=== PATIENT | female | born 1960 | race Caucasian/White ===

== ENCOUNTER 2016-11-21 21:18 | Observation (INO) | payer MEDICARE ==
[~2016-11-21] VITALS: Ht 157.5 cm; Wt 84.0 kg
[2016-11-21 21:25] VITALS: BP 177/70; PULSE 95; RESP 30; TEMP 98.8; O2SAT 96
[2016-11-21] MEDS ORDERED: GLUCAGON 1 MG/ML VIAL IV PUSH ONE (21:45)
[2016-11-21] MEDS ORDERED: MORPHINE SULFATE 4 MG/ML INJ IV PUSH ONE ×2 (21:45→23:00)
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
[2016-11-21 22:24] LABS: AUTOMATED NEUTROPHIL # 3.5 TH/MM3 (1.8-7.7); BASOPHIL # 0.1 TH/MM3 (0-0.2); EOSINOPHIL # 0.2 TH/MM3 (0-0.4); EOSINOPHIL % 2.3 % (0.0-4.0); HEMATOCRIT 36.1 % (35.0-46.0); HEMO FLAGS DIFF FINAL; LYMPH % 36.5 % (9.0-44.0); LYMPHOCYTE # 2.6 TH/MM3 (1.0-4.8); MEAN CELL VOLUME 90.5 FL (80.0-100.0); MEAN CORPUSCULAR HEMOGLOBIN 31.3 PG (27.0-34.0); MEAN CORPUSCULAR HGB CONC 34.6 % (32.0-36.0); MONO % 10.2 % (0.0-8.0); PLATELET COUNT 277 TH/MM3 (150-450); RED BLOOD COUNT 3.99 MIL/MM3 (4.00-5.30); RED CELL DISTRIBUTION WIDTH 13.8 % (11.6-17.2)
[2016-11-21 22:42] LABS: ANION GAP 9 MEQ/L (5-15); AST (GOT) 19 U/L (15-37); BICARBONATE 27.5 MEQ/L (21.0-32.0); BLOOD UREA NITROGEN 11 MG/DL (7-18); CHLORIDE 105 MEQ/L (98-107); GLOMERULAR FILTRATION RATE 49 ML/MIN (>89); POTASSIUM 3.5 MEQ/L (3.5-5.1); SODIUM (NA) 141 MEQ/L (136-145)
[2016-11-21 22:47] LABS: ALKALINE PHOSPHATASE 83 U/L (45-117); ALT (GPT) 30 U/L (10-53); TOTAL BILIRUBIN ADULT 0.4 MG/DL (0.2-1.0)
--- NOTE | 2016-11-21 22:48 | RADRPT ---
EXAM DATE/TIME: 11/21/2016 22:18 [facility] COMPARISON: No previous studies available for comparison. INDICATIONS : Foreign body in esophagus. SOB. Eval for foreign body. RADIATION DOSE: 8.73 CTDIvol (mGy) MEDICAL HISTORY : None SURGICAL HISTORY : None. ENCOUNTER: Initial ACUITY: 1 day PAIN SCALE: 5/10 LOCATION: chest TECHNIQUE: Volumetric scanning of the chest was performed. Using automated exposure control and adjustment of t he mA and/or kV according to patient size, radiation dose was kept as low as reasonably achievable to obtain optimal diagnostic quality images. FINDINGS: LUNGS: There is no consolidation or pneumothorax. No concerning pulmonary nodule is visualized. No definite foreign body identified. PLEURAE: There is no pleural thickening or pleural effusion. MEDIASTINUM: The heart and great vessels demonstrate no acute abnormality. There is no mediastinal or hilar lymph adenopathy. AXILLAE: Within normal limits. No lymphadenopathy. MUSCULOSKELETAL: There is moderate to severe chronic compression deformity involving T10 with kyphosis. MISCELLANEOUS: The visualized upper abdominal organs demonstrate no acute abnormality. CONCLUSION: No definite foreign body identified. Moderate to severe chronic compression deformity involving T10 with kyphosis. Lungs are clear. Bairon Costello MD on November 21, 2016 at 22:43 Board Certified Radiologist. This report was verified electronically.
[2016-11-21 22:50] LABS: APTT (PATIENT) 32.6 SEC (24.3-30.1); PROTHROMBIN TIME - PATIENT 10.6 SEC (9.8-11.6)
--- NOTE | 2016-11-21 22:55 | RADRPT ---
EXAM DATE/TIME: 11/21/2016 22:36 [facility] COMPARISON: No previous studies available for comparison. INDICATIONS : Possible aspiration. Patient choked on a piece of chicken. MEDICAL HISTORY : None. SURGICAL HISTORY : None. ENCOUNTER: Initial ACUITY: 1 day PAIN SCORE: 10/10 LOCATION: Bilateral chest FINDINGS: There is moderate to severe compression deformity involving the T10 vertebral body. This is likely c hronic. The heart and mediastinal structures are normal. The pulmonary vascular pattern is normal. The lungs are clear. No radiopaque foreign body is noted. CONCLUSION: 1. No acute cardiopulmonary disease. 2. Moderate to severe compression deformity involving the T10 vertebral body which is likely chronic. Bairon Costello MD on November 21, 2016 at 22:51 Board Certified Radiologist. This report was verified electronically.
[2016-11-21] MEDS ORDERED: HYDROmorphone HCL PF 1 MG/ML VIAL IV PUSH ONE (23:30)
[2016-11-22] MEDS ORDERED: SODIUM CHLORIDE 0.9% FLUSH 10 ML FLUSH IV FLUSH PRN (00:15)
[2016-11-22] MEDS ORDERED: ACETAMINOPHEN 1000 MG/100 ML VIAL IV PRN (00:15)
[2016-11-22] MEDS ORDERED: MORPHINE SULFATE 4 MG/ML INJ IV PRN (00:15)
[2016-11-22] MEDS ORDERED: BISACODYL 10 MG SUPP PR PRN (00:15)
[2016-11-22] MEDS ORDERED: ONDANSETRON HCL 4 MG/2 ML VIAL IVP PRN (00:15)
[2016-11-22 00:27] VITALS: BP 112/60; PULSE 59; RESP 28; O2SAT 98
[2016-11-22] MEDS ORDERED: LORA-400 PO (00:29)
[2016-11-22] MEDS ORDERED: LYRI200C PO (00:33)
[2016-11-22] MEDS ORDERED: MULT-135 PO (00:33)
[2016-11-22] MEDS ORDERED: CLON0.5T PO (00:33)
[2016-11-22] MEDS ORDERED: BUPR100T4 PO (00:33)
[2016-11-22] MEDS ORDERED: CITA40TA4 PO (00:33)
[2016-11-22] MEDS ORDERED: TRAZ150T75 PO (00:33)
[2016-11-22] MEDS: MORPHINE SULFATE 4 MG/ML INJ IV PRN ×3 (01:27→17:24)
[2016-11-22 01:48] VITALS: BP 112/60; PULSE 60; RESP 18; O2SAT 95
[2016-11-22] MEDS: PANTOPRAZOLE SODIUM 40 MG VIAL IV PUSH SCH ×3 (01:57→20:28)
[2016-11-22] MEDS: SODIUM CHLOR 0.9% 1000 ML INJ 1,000 ML IV SCH ×3 (01:57→19:54)
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
[2016-11-22 05:35] VITALS: BP 129/92; PULSE 59; RESP 18; O2SAT 96
[2016-11-22 07:32] VITALS: BP 117/58; PULSE 52; RESP 18; O2SAT 95
[2016-11-22] MEDS ORDERED: PROPOFOL 200 MG/20 ML AMP IV ONE (08:20)
[2016-11-22] MEDS ORDERED: DO NOT ADM ANY ANTICOAGULANT DRUGS XX PRN (08:48)
[2016-11-22] MEDS ORDERED: *RESP: ALBUTEROL 2.5 MG/3 ML NEB (PRN) PERIprocedural Use ONLY NEB ONE (08:49)
--- NOTE | 2016-11-22 08:52 | PD.CONS ---
HPI History of Present Illness This is a 56 year old female who presents to the ED with complaints of food bolus impaction this happened earlier in the day and she did not respond to the gone injection the patient complains of discomfort and inability to swallow liquids with some epigastric discomfort and pain she denies any prior history of heartburn or reflux denies any prior history of dysphagia or odynophagia she denies any change in appetite or weight loss and overall apart from anxiety she is in good health PFSH Past Medical History Anxiety Past Surgical History Hysterectomy, Right Arm Surgery Coded Allergies: Codeine (Verified Allergy, Unknown, 11/21/16) Penicillin (Verified Allergy, Unknown, 11/21/16) Family History Noncontributory Social History No tobacco or alcohol Review of Systems ROS Review of systems Patient denies any headache dizziness blurry vision, denies any chest pain shortness of breath cough fever chills, Denies any palpitations or fatigue denies any polyuria dysuria hematuria, denies any numbness tingling or weakness, denies any skin rash pruritus or jaundice, denies any easy bruising or bleeding tendency, denies any recent change in mood GI Exam Vitals I&O Vital Signs Date Time Temp Pulse Resp B/P Pulse Ox O2 Delivery O2 Flow Rate FiO2 11/22/16 07:32 52 18 117/58 95 Nasal Cannula 2 11/22/16 05:35 59 18 129/92 96 Nasal Cannula 2 11/22/16 01:48 60 18 112/60 95 Room Air 11/22/16 00:27 59 28 112/60 98 Room Air 11/21/16 21:29 Nasal Cannula 2 11/21/16 21:29 30 95 Nasal Cannula 2 11/21/16 21:25 98.8 95 30 177/70 96 Imaging Last Impressions Chest X-Ray 11/21/16 0000 Signed Impressions: Service Date/Time: Monday, November 21, 2016 22:36 - CONCLUSION: 1. No acute cardiopulmonary disease. 2. Moderate to severe compression deformity involving the T10 vertebral body which is likely chronic. Bairon Costello MD Chest CT 11/21/16 0000 Signed Impressions: Service Date/Time: Monday, November 21, 2016 22:18 - CONCLUSION: No definite foreign body identified. Moderate to severe chronic compression deformity involving T10 with kyphosis. Lungs are clear. Bairon Costello MD Laboratory Test 11/21/16 22:00 White Blood Count 7.0 TH/MM3 Red Blood Count 3.99 MIL/MM3 Hemoglobin 12.5 GM/DL Hematocrit 36.1 % Mean Corpuscular Volume 90.5 FL Mean Corpuscular Hemoglobin 31.3 PG Mean Corpuscular Hemoglobin 34.6 % Concent Red Cell Distribution Width 13.8 % Platelet Count 277 TH/MM3 Mean Platelet Volume 8.9 FL Neutrophils (%) (Auto) 50.0 % Lymphocytes (%) (Auto) 36.5 % Monocytes (%) (Auto) 10.2 % Eosinophils (%) (Auto) 2.3 % Basophils (%) (Auto) 1.0 % Neutrophils # (Auto) 3.5 TH/MM3 Lymphocytes # (Auto) 2.6 TH/MM3 Monocytes # (Auto) 0.7 TH/MM3 Eosinophils # (Auto) 0.2 TH/MM3 Basophils # (Auto) 0.1 TH/MM3 CBC Comment DIFF FINAL Differential Comment Prothrombin Time 10.6 SEC Prothromb Time International 1.0 RATIO Ratio Activated Partial 32.6 SEC Thromboplast Time Sodium Level 141 MEQ/L Potassium Level 3.5 MEQ/L Chloride Level 105 MEQ/L Carbon Dioxide Level 27.5 MEQ/L Anion Gap 9 MEQ/L Blood Urea Nitrogen 11 MG/DL Creatinine 1.15 MG/DL Estimat Glomerular Filtration 49 ML/MIN Rate Random Glucose 112 MG/DL Calcium Level 9.0 MG/DL Total Bilirubin 0.4 MG/DL Aspartate Amino Transf 19 U/L (AST/SGOT) Alanine Aminotransferase 30 U/L (ALT/SGPT) Alkaline Phosphatase 83 U/L Troponin I LESS THAN 0.02 NG/ML Total Protein 7.4 GM/DL Albumin 3.8 GM/DL Physical Examination HEENT: Pupils round and reactive to light; normocephalic; atraumatic; no jaundice. Throat is clear. NECK: Neck is supple, no JVD, no lymphadenopathy. CHEST: Chest is clear to auscultation and percussion. CARDIAC: Regular rate and rhythm with no murmur gallop or rubs. ABDOMEN: Soft, nondistended, nontender; no hepatosplenomegaly; bowel sounds are present in all four quadrants. EXTREMITIES: No clubbing, cyanosis, or edema. SKIN: Normal; no rash; no jaundice. [employer]: No focal deficits; alert and oriented times three. Assessment and Plan Plan Food bolus impaction Anxiety Patient advised an EGD Further recommendations shall depend on findings Spike Vaughan MD Nov 22, 2016 08:52
--- NOTE | 2016-11-22 08:57 | GIPROC ---
[facility] [address] [facility]. [facility], [address] EGD PROCEDURE REPORT EXAM DATE: 11/22/2016 PATIENT NAME: Brenda Valdes MR #: [id number] BIRTHDATE: 1960 ATTENDING: Spike Vaughan MD ORDER #: [id number] HYDRAULIC PRESS OPERATOR: Brenda Pires and Jane March STATUS: inpatient INDICATIONS: The patient is a 56 yr old female here for an EGD due to Food bolus impaction PROCEDURE PERFORMED: EGD w/ dilation of esophagus via guidewire MEDICATIONS: Per Anesthesia and None. TOPICAL ANESTHETIC: CONSENT: The patient understands the risks and benefits of the procedure and understands that these risks include, but are not limited to: sedation, allergic reaction, infection, perforation and/or bleeding. Alternative means of evaluation and treatment include, among others: physical exam, x-rays, and/or surgical intervention. The patient elects to proceed with this endoscopic procedure. medical equipment was checked for proper function. Hand hygiene and appropriate measures for infection prevention was taken. After the risks, benefits and alternatives of the procedure were thoroughly explained, Informed consent was verified, confirmed and timeout was successfully executed by the treatment team. The patient was anesthetized with topical anesthesia and the Pentax [id number] endoscope was introduced through the mouth and advanced to the second portion of the duodenum. Retroflexed views revealed no abnormalities The gastroscope was then slowly withdrawn and removed. ESOPHAGUS: The mucosa of the esophagus appeared normal. Multiple biopsies were performed. A moderately severe Schatzki ring was found at the gastroesophageal junction. The stricture was dilated using a 17mm (51Fr) savary dilator over guidewire. Following this dilation, there was a small mucosal rent. The endoscopy was otherwise normal. STOMACH: A small hiatal hernia was noted. ADVERSE EVENTS: There were no complications. IMPRESSIONS: 1. The esophagus appeared normal; multiple biopsies were performed 2. Schatzki ring was found at the gastroesophageal junction; Following this dilation, there was a small mucosal rent 3. Normal endoscopy otherwise 4. Small hiatal hernia 5. Retroflexed views revealed no abnormalities RECOMMENDATIONS: 1. Await biopsy results. Biopsy results will not be ready for 7-10 days. If you don't hear from us in two weeks, call our office for biopsy results. 2. Follow-up: GI clinic 3 week(s) 3. Anti-reflux regimen PATIENT CONDITION: stable DISPOSITION: Home REPEAT EXAM: Spike Vaughan MD eSigned: Spike Vaughan MD 11/22/2016 8:57 AM cc: PATIENT NAME: Brenda Valdes MR#: [id number]
[2016-11-22] MEDS: SODIUM CHLORIDE 0.9% FLUSH 10 ML FLUSH IV FLUSH SCH ×2 (09:00→20:29)
--- NOTE | 2016-11-22 10:57 | RADRPT ---
EXAM DATE/TIME: 11/22/2016 10:18 [facility] COMPARISON: CHEST PA & LAT, November 21, 2016, 22:36. CT THORAX W/O CONTRAST, November 21, 2016, 22:18. INDICATIONS : Shortness of breath. MEDICAL HISTORY : None. SURGICAL HISTORY : Hysterectomy. ENCOUNTER: Subsequent ACUITY: 2 days PAIN SCORE: Non-responsive. LOCATION: Bilateral chest FINDINGS: Single AP view of the chest. Mild subsegmental atelectasis of the left lower lung. The lungs are othe rwise clear. Cardiomediastinal silhouette within normal limits. No evidence of pleural effusion or pn eumothorax. CONCLUSION: No acute cardiopulmonary disease identified. Garrett Kelly MD on November 22, 2016 at 10:54 Board Certified Radiologist. This report was verified electronically.
[2016-11-22] MEDS ORDERED: *morphine SULFATE 8 MG/ML PERIprocedure ONLY ONE ×3 (11:21→12:35)
[2016-11-22 11:25] LABS: BLOOD GAS BASE EXCESS -0.4 mmol/L (-2-2); BLOOD GAS CARBOXYHEMOGLOBIN 1.7 % (0-4); BLOOD GAS HCO3 25 mmol/L (22-26); BLOOD GAS METHEMOGLOBIN 1.3 % (0-2); BLOOD GAS O2 HGB SATURATION 93 % (90-100); BLOOD GAS PCO2 48 mmHg (38-42); BLOOD GAS PO2 82 mmHg (61-120); BLOOD GAS TOTAL HGB 11.5 G/DL (12.0-16.0); TEMP CORR TO 98.6
[2016-11-22 11:26] LABS: CRITICAL VALUE NO; DRAW SITE RT RADIAL; LITER FLOW 2 L/M; NUMBER OF ARTERIAL PUNCTURES 1; OXYGEN DEVICE NASAL CANNULA; STAT YES
[2016-11-22] MEDS: LORazepam 2 MG/ML VIAL IV PUSH PRN (12:25)
[2016-11-22 13:42] LABS: AUTOMATED NEUTROPHIL # 7.1 TH/MM3 (1.8-7.7); BASOPHIL % 0.5 % (0.0-2.0); EOSINOPHIL # 0.1 TH/MM3 (0-0.4); EOSINOPHIL % 0.6 % (0.0-4.0); HEMATOCRIT 35.2 % (35.0-46.0); HEMO FLAGS DIFF FINAL; LYMPH % 17.6 % (9.0-44.0); LYMPHOCYTE # 1.7 TH/MM3 (1.0-4.8); MEAN CELL VOLUME 92.1 FL (80.0-100.0); MEAN CORPUSCULAR HEMOGLOBIN 30.3 PG (27.0-34.0); MEAN CORPUSCULAR HGB CONC 32.8 % (32.0-36.0); MONO % 7.5 % (0.0-8.0); NEUT % 73.8 % (16.0-70.0); PLATELET COUNT 238 TH/MM3 (150-450); RED BLOOD COUNT 3.82 MIL/MM3 (4.00-5.30); RED CELL DISTRIBUTION WIDTH 13.5 % (11.6-17.2); WHITE BLOOD COUNT 9.7 TH/MM3 (4.0-11.0)
[2016-11-22] MEDS: RESP: ALBUTEROL 2.5 MG/IPRATROPIUM 0.5 MG NEB (SCH) NEB ×2 (14:00→20:03)
[2016-11-22 14:08] LABS: BICARBONATE 29.1 MEQ/L (21.0-32.0); POTASSIUM 3.8 MEQ/L (3.5-5.1)
[2016-11-22] MEDS: LEVOFLOXACIN 750 MG PREMIX INJ 150 ML IV SCH (14:30)
[2016-11-22 19:26] VITALS: BP 100/58; PULSE 59; RESP 20; TEMP 97.6; O2SAT 97
[2016-11-22 20:09] VITALS: O2SAT 95
--- NOTE | 2016-11-22 21:15 | MB ---
cc: Guero LUBIN M.D. DATE OF CONSULTATION 11/22/16 REASON FOR CONSULTATION Possible aspiration and hypoxia. HISTORY OF PRESENT ILLNESS A 56-hour-old white female with a history of anxiety WHO was transported to the emergency room with a piece of chicken lodged in her throat. The patient apparently was choking and tried to dislodge the piece of chicken but felt that part of it was lodged in the esophagus. The patient was also having some trouble breathing, but denied significant cough or hemoptysis. Upon arrival, a CT of the chest was done which showed no evidence of any lung infiltrate. The foreign body was not identified. She underwent upper endoscopy and esophageal dilatation earlier today. Now she is in her room on oxygen at 2 liters, seems lethargic but answers questions and her breathing is fairly comfortable. She has no cough at this time. No hemoptysis. No chest pains. PAST MEDICAL HISTORY 1. History of right arm surgery, 2. Hysterectomy, 3. History of anxiety. ALLERGIES PENICILLIN CODEINE. HABITS The patient smoked half to one-pack per day for about 20 years and then quit. No significant alcohol. FAMILY HISTORY Noncontributory REVIEW OF SYSTEMS The patient denies any weight loss. No chest pains. She has no shortness of breath or wheezing. She does have some abdominal and epigastric distress. No urinary symptoms. No leg or calf muscle pains. She has no joint pains or skin lesions. PHYSICAL EXAMINATION GENERAL: This is an averagely built middle-aged white female who is anxious, pale and in no acute distress. VITAL SIGNS: Blood pressure 110/70, pulse is 65, respirations 20, temperature 98.5. HEENT: Head normocephalic. Pupils are reactive. Throat is injected. Ears no inflammation. NECK: Supple. No bruits or thyroid enlargement. CHEST: Decreased breath sounds at the bases. Occasional wheezes bilaterally. HEART: The heart sounds are regular S1-S2. No murmur. ABDOMEN: Soft with mild epigastric tenderness. Bowel sounds are active. EXTREMITIES: No lesions or edema, no calf tenderness. NEUROLOGIC: Reflexes are 1+. No gross motor deficit. SKIN: No lesions observed. IMPRESSION 1. Esophageal foreign body, resolved 2. Hypertension 3. Anxiety disorder 4. Rule out aspiration. PLAN The patient will be placed on two liters of oxygen nasal cannula. She has already had esophageal dilation done. We will place her on nebulized albuterol solution t.i.d. p.r.n. and continue with the IV Levaquin as ordered for possible pneumonia. The patient will have a bedside pulmonary function study done as well and a repeat chest x-ray in a.m. Thank you, Dr. Nielson, for this consultation. MD MELANIE Maurice/ /7:36 PM /9:01 PM
--- NOTE | 2016-11-22 21:31 | EKG ---
Date Performed: 11/21/2016 Time Performed: 21:48:49 PTAGE: 56 years EKG: Sinus rhythm NORMAL ECG NO PREVIOUS TRACING DOCTOR: Katt Mcgowan Interpretating Date/Time 11/22/2016 21:30:21
--- NOTE | 2016-11-22 22:17 | EKG ---
Date Performed: 11/22/2016 Time Performed: 11:10:04 PTAGE: 56 years EKG: SINUS BRADYCARDIA Since previous tracing, no significant change noted BORDERLINE ECG PREVIOUS TRACING : 11/21/2016 21.48 DOCTOR: Katt Mcgowan Interpretating Date/Time 11/22/2016 22:15:57
[2016-11-23] VITALS (8 sets, daily range): BP systolic 122–166; BP diastolic 58–77; PULSE 56–89; RESP 18–20; TEMP 97.6–98.6; O2SAT 92–97
[2016-11-23] MEDS: SODIUM CHLOR 0.9% 1000 ML INJ 1,000 ML IV SCH ×3 (02:06→21:58)
[2016-11-23 04:33] LABS: AUTOMATED NEUTROPHIL # 4.9 TH/MM3 (1.8-7.7); BASOPHIL % 0.4 % (0.0-2.0); EOSINOPHIL % 0.6 % (0.0-4.0); HEMATOCRIT 33.3 % (35.0-46.0); HEMO FLAGS DIFF FINAL; LYMPH % 21.9 % (9.0-44.0); LYMPHOCYTE # 1.5 TH/MM3 (1.0-4.8); MEAN CELL VOLUME 91.4 FL (80.0-100.0); MEAN CORPUSCULAR HEMOGLOBIN 31.1 PG (27.0-34.0); MONO % 7.9 % (0.0-8.0); NEUT % 69.2 % (16.0-70.0); PLATELET COUNT 235 TH/MM3 (150-450); RED BLOOD COUNT 3.64 MIL/MM3 (4.00-5.30); RED CELL DISTRIBUTION WIDTH 13.7 % (11.6-17.2); WHITE BLOOD COUNT 7.1 TH/MM3 (4.0-11.0)
[2016-11-23 04:50] LABS: ANION GAP 8 MEQ/L (5-15); AST (GOT) 16 U/L (15-37); BICARBONATE 25.4 MEQ/L (21.0-32.0); BLOOD UREA NITROGEN 10 MG/DL (7-18); CHLORIDE 109 MEQ/L (98-107); GLOMERULAR FILTRATION RATE 71 ML/MIN (>89); POTASSIUM 3.9 MEQ/L (3.5-5.1); SODIUM (NA) 142 MEQ/L (136-145)
[2016-11-23 04:55] LABS: ALKALINE PHOSPHATASE 70 U/L (45-117); ALT (GPT) 25 U/L (10-53); TOTAL BILIRUBIN ADULT 0.3 MG/DL (0.2-1.0)
[2016-11-23] MEDS: RESP: ALBUTEROL 2.5 MG/IPRATROPIUM 0.5 MG NEB (SCH) NEB ×3 (07:26→21:10)
[2016-11-23] MEDS: PANTOPRAZOLE SODIUM 40 MG VIAL IV PUSH SCH ×2 (08:59→21:56)
[2016-11-23] MEDS: SODIUM CHLORIDE 0.9% FLUSH 10 ML FLUSH IV FLUSH SCH ×2 (09:00→21:00)
--- NOTE | 2016-11-23 10:26 | HHI.PR ---
Subjective Remarks Follow-up for dysphagia and shortness of breath. The patient complains of shortness of breath today. She is having pain with deep breathing. She's been having sweats overnight. She complains of a productive cough with green and black sputum. She denies any history of COPD. She denies any relief of the pain with morphine. She locates the pain midsternally and on the left side of the chest. She denies any personal past history or family history of clotting. Objective Vitals Vital Signs Date Time Temp Pulse Resp B/P Pulse Ox O2 Delivery O2 Flow Rate FiO2 11/23/16 07:24 98.2 62 18 166/77 92 11/23/16 03:56 97.6 60 20 145/66 97 11/23/16 00:16 98.6 56 20 128/58 95 11/22/16 20:09 95 Nasal Cannula 2.00 11/22/16 19:26 97.6 59 20 100/58 97 11/22/16 17:29 20 11/22/16 15:15 98.2 58 14 112/66 95 Nasal Cannula 3 11/22/16 14:00 56 14 99/58 94 Nasal Cannula 3 11/22/16 13:00 56 14 95/49 92 Nasal Cannula 3 11/22/16 12:00 60 14 114/71 96 Nasal Cannula 3 11/22/16 11:30 56 14 112/52 90 Nasal Cannula 3 11/22/16 11:15 55 14 95/66 93 Nasal Cannula 2 11/22/16 11:00 51 14 102/63 93 Nasal Cannula 2 11/22/16 10:45 56 14 109/64 93 Nasal Cannula 2 11/22/16 10:30 56 14 109/63 93 Nasal Cannula 2 I/O 11/22/16 11/22/16 11/22/16 11/23/16 11/23/16 11/23/16 07:00 15:00 23:00 07:00 15:00 23:00 Intake Total 600 ml 730 ml Output Total 0 ml Balance 600 ml 730 ml Intake Oral 0 ml IV Total 730 ml Other 600 ml Output Estimated Blood Loss 0 ml # Voids 1 2 Result Diagram: 11/23/16 0359 11/23/16 0359 Imaging Last Impressions Chest X-Ray 11/22/16 0000 Signed Impressions: Service Date/Time: Tuesday, November 22, 2016 10:18 - CONCLUSION: No acute cardiopulmonary disease identified. Garrett Kelly MD Chest CT 11/21/16 0000 Signed Impressions: Service Date/Time: Monday, November 21, 2016 22:18 - CONCLUSION: No definite foreign body identified. Moderate to severe chronic compression deformity involving T10 with kyphosis. Lungs are clear. Bairon Costello MD Objective Remarks GENERAL: Well-developed well-nourished. In [id number] distress with tachypnea. SKIN: Warm and dry. No lesions noted. HEENT: Normocephalic. Pupils equal and round. Mucous membranes pink and moist. CARDIOVASCULAR: Regular rate and rhythm. No murmur appreciated. RESPIRATORY: Clear to auscultation. Breath sounds equal bilaterally. GASTROINTESTINAL: Abdomen soft, non-tender, nondistended. Bowel sounds x4. MUSCULOSKELETAL: No clubbing or cyanosis. No edema. Left chest wall TTP. Left calf with no swelling, but tender to palpation. NEUROLOGICAL: Awake and alert. No focal neurological deficits. Moves upper and lower extremities spontaneously. Normal speech. PSYCHIATRIC: Appropriate mood and affect; insight and judgment normal. A/P Problem List: (1) Esophageal foreign body ICD Code: T18.108A Status: Resolved (2) Renal insufficiency ICD Code: N28.9 Status: Resolved (3) Anxiety ICD Code: F41.9 Status: Acute (4) HTN (hypertension) ICD Code: I10 Status: Acute (5) SOB (shortness of breath) ICD Code: R06.02 Status: Acute (6) Hypoxia ICD Code: R09.02 Status: Acute (7) Chest pain ICD Code: R07.9 Status: Acute Assessment and Plan 56-year-old female with a PMH of Anxiety who presented after choking on a piece of chicken Esophageal Foreign Body: after choking on boneless chicken, CXR w/ no acute findings, CT Chest w/ no obvious foreign body noted. Gastroenterology, Dr. Vaughan consulted, performed EGD which showed Schatzki ring which was dilated. Nothing by mouth with speech therapy eval. Atypical chest pain/shortness of breath/hypoxia: Concern for aspiration with dysphagia as above. Troponin negative 2. Chest x-rays and CT show no infiltrate. Check pulmonary angiogram to rule out PE and lower showing a Doppler to rule out DVT. Pulmonology consulted. Continue supplemental oxygen, nebulizers, IV Levaquin. Dehydration with mild CARA: Creatinine 1.15, no previous labs for comparison. Creatinine improved to 0.83 with IVF. Anxiety: Severe Anxiety, on multiple meds, unable to give PO at this time, continue Ativan IV as needed, resume home meds when able to take by mouth. Labile BP: Hypertensive on arrival and currently, but episodes of hypotension yesterday. Clonidine as needed. Monitor. DVT Prophylaxis: SCD/Teds. Written by Bigg Odom, acting as scribe for Dr. Nielson on 11/23/16 at 10:26. All or portions of this note were transcribed by scribe Bigg CORDOVA. I, Dr. Dottie Nielson personally performed the history, physical exam, and medical decision making; and confirmed the accuracy of the information in the transcribed note. Authenticated by Dr. Dottie Nielson on 11/23/16 at 10:26. Problem Qualifiers (1) Esophageal foreign body: Qualified Code: T18.108A - Esophageal foreign body, initial encounter Bigg Odom Nov 23, 2016 10:26 Dottie Nielson MD Nov 23, 2016 15:33
[2016-11-23] MEDS ORDERED: cloNIDine HCL 0.1 MG TAB PO PRN (10:30)
--- NOTE | 2016-11-23 10:50 | RADRPT ---
EXAM DATE/TIME: 11/23/2016 09:06 [facility] COMPARISON: No previous studies available for comparison. INDICATIONS : Pain in bilateral lower extremities. MEDICAL HISTORY : Pain in bilateral legs. SURGICAL HISTORY : Hysterectomy. Right arm surgery. ENCOUNTER: Initial ACUITY: 1 day PAIN SCORE: 5/10 LOCATION: Bilateral legs. TECHNIQUE: Venous ultrasound of the left and right leg was performed from the inguinal ligament to the proximal calf. Real-time, color Doppler and spectral tracing, compression and augmentation techniques were us ed. FINDINGS: RIGHT LEG: There is normal compressibility of the deep venous system from the inguinal region to the proximal ca lf. No echogenic clot is seen in the lumen of the common femoral, femoral, popliteal, and posterior tibial veins. There is a normal response of the venous system to proximal and distal augmentation an d respiration. LEFT LEG: There is normal compressibility of the deep venous system from the inguinal region to the proximal ca lf. No echogenic clot is seen in the lumen of the common femoral, femoral, popliteal, and posterior tibial veins. There is a normal response of the venous system to proximal and distal augmentation an d respiration. CONCLUSION: Negative for deep venous thrombosis. Andres Morse MD FACR on November 23, 2016 at 10:48 Board Certified Radiologist. This report was verified electronically.
[2016-11-23] MEDS: buPROPion HCL 100 MG TAB PO SCH (11:45)
[2016-11-23] MEDS: PREGABALIN 100 MG CAP PO SCH (11:47)
[2016-11-23] MEDS: CITALOPRAM HYDROBROMIDE 40 MG TAB PO SCH (11:47)
[2016-11-23] MEDS: LORazepam 2 MG/ML VIAL IV PUSH PRN ×2 (11:48→18:37)
[2016-11-23] MEDS: clonazePAM 0.5 MG TAB PO SCH (11:58)
[2016-11-23] MEDS ORDERED: IOHEXOL 350 MG/ML 10 ML VIAL (for RAD DIAG) IV ONE ×2 (12:03→14:54)
--- NOTE | 2016-11-23 12:55 | HHI.GIFU ---
Subjective Remarks Resting in bed. States her swallowing is much better today. ST was in and recommended a regular diet. She has worsening, shortness of breath, mildly labored breathing today. She just got back from CTA. (Radha Toure ) Objective Vitals I&O Vital Signs Date Time Temp Pulse Resp B/P Pulse Ox O2 Delivery O2 Flow Rate FiO2 11/23/16 11:55 98.1 78 20 154/74 96 11/23/16 07:24 98.2 62 18 166/77 92 11/23/16 03:56 97.6 60 20 145/66 97 11/23/16 00:16 98.6 56 20 128/58 95 11/22/16 20:09 95 Nasal Cannula 2.00 11/22/16 19:26 97.6 59 20 100/58 97 11/22/16 17:29 20 11/22/16 15:15 98.2 58 14 112/66 95 Nasal Cannula 3 11/22/16 14:00 56 14 99/58 94 Nasal Cannula 3 11/22/16 13:00 56 14 95/49 92 Nasal Cannula 3 I/O 11/22/16 11/22/16 11/22/16 11/23/16 11/23/16 11/23/16 07:00 15:00 23:00 07:00 15:00 23:00 Intake Total 600 ml 730 ml Output Total 0 ml Balance 600 ml 730 ml Intake Oral 0 ml IV Total 730 ml Other 600 ml Output Estimated Blood Loss 0 ml # Voids 1 2 Laboratory Laboratory Tests Test 11/22/16 11/23/16 13:20 03:59 White Blood Count 9.7 7.1 Red Blood Count 3.82 3.64 Hemoglobin 11.5 11.3 Hematocrit 35.2 33.3 Mean Corpuscular Volume 92.1 91.4 Mean Corpuscular Hemoglobin 30.3 31.1 Mean Corpuscular Hemoglobin 32.8 34.0 Concent Red Cell Distribution Width 13.5 13.7 Platelet Count 238 235 Mean Platelet Volume 8.4 9.0 Neutrophils (%) (Auto) 73.8 69.2 Lymphocytes (%) (Auto) 17.6 21.9 Monocytes (%) (Auto) 7.5 7.9 Eosinophils (%) (Auto) 0.6 0.6 Basophils (%) (Auto) 0.5 0.4 Neutrophils # (Auto) 7.1 4.9 Lymphocytes # (Auto) 1.7 1.5 Monocytes # (Auto) 0.7 0.6 Eosinophils # (Auto) 0.1 0.0 Basophils # (Auto) 0.0 0.0 CBC Comment DIFF FINAL DIFF FINAL Differential Comment Sodium Level 143 142 Potassium Level 3.8 3.9 Chloride Level 110 109 Carbon Dioxide Level 29.1 25.4 Anion Gap 4 8 Blood Urea Nitrogen 11 10 Creatinine 0.87 0.83 Estimat Glomerular Filtration 68 71 Rate Random Glucose 92 94 Calcium Level 8.2 8.7 Troponin I LESS THAN 0.02 Total Bilirubin 0.3 Aspartate Amino Transf 16 (AST/SGOT) Alanine Aminotransferase 25 (ALT/SGPT) Alkaline Phosphatase 70 Total Protein 6.7 Albumin 3.5 Date/Time Procedure Status Source Growth 11/22/16 13:25 Aerobic Blood Culture - Preliminary Resulted Blood Peripheral NO GROWTH IN 1 DAY 11/22/16 13:25 Anaerobic Blood Culture - Preliminary Resulted Blood Peripheral NO GROWTH IN 1 DAY Imaging Last Impressions Lower Extremity Ultrasound 11/23/16 0000 Signed Impressions: Service Date/Time: Wednesday, November 23, 2016 09:06 - CONCLUSION: Negative for deep venous thrombosis. Andres Morse MD FACR Chest X-Ray 11/22/16 0000 Signed Impressions: Service Date/Time: Tuesday, November 22, 2016 10:18 - CONCLUSION: No acute cardiopulmonary disease identified. Garrett Kelly MD Chest CT 11/21/16 0000 Signed Impressions: Service Date/Time: Monday, November 21, 2016 22:18 - CONCLUSION: No definite foreign body identified. Moderate to severe chronic compression deformity involving T10 with kyphosis. Lungs are clear. Bairon Costello MD Physical Exam HEENT: Normocephalic; atraumatic; no jaundice. CHEST: Resp. even, mildly labored, mildly tachypenic. O2 sat 96%. CARDIAC: RRR ABDOMEN: Soft, nondistended, mild lUQ/rib cage tenderness; no hepatosplenomegaly; bowel sounds are present in all four quadrants. EXTREMITIES: No clubbing, cyanosis, or edema. SKIN: Normal; no rash; no jaundice. PLEAT TAPER: No focal deficits; alert and oriented times three. (Toure,Radha Lala ANNUAL CAMPAIGN MANAGER) Assessment and Plan Plan ASSESSMENT: - Food bolus impaction. S/P EGD (11/23/16)-----> 1. The esophagus appeared normal; multiple biopsies were performed. 2. Schatzki ring was found at the gastroesophageal junction; Following this dilation, there was a small mucosal rent 3. Normal endoscopy otherwise 4. Small hiatal hernia 5. Retroflexed views revealed no abnormalities. Pathology pending. S/P ST evaluation---> pureed with thin liquids. PPI. - SOB, Difficulty breathing. CTA pending. Per primary - Anxiety, per primary PLAN: - Puree diet with thin liquids - Await pathology - PPI - Cont. ST - Supportive care - Further recommendations to follow based on results of above - Pt seen and examined by Dr. Vaughan and myself and this note is written on his behalf (Radha Toure) Physician Comments Patient seen and examined Agree with above Continue with current supportive care Monitor labs Not much to add from a GI perspective at this point in time we will sign off ( Spike Vaughan MD) Radha Toure Nov 23, 2016 12:54 Spike Vaughan MD Nov 23, 2016 14:29
--- NOTE | 2016-11-23 12:57 | RADRPT ---
EXAM DATE/TIME: 11/23/2016 12:03 [facility] COMPARISON: CT THORAX W/O CONTRAST, November 21, 2016, 22:18. INDICATIONS : Left sided chest pain, painful inspirations. IV CONTRAST: 75 cc Omnipaque 350 (iohexol) IV RADIATION DOSE: 22.39 CTDIvol (mGy) MEDICAL HISTORY : Hypertension. SURGICAL HISTORY : Hysterectomy. ENCOUNTER: Initial ACUITY: 1 day PAIN SCALE: 7/10 LOCATION: Left chest TECHNIQUE: Volumetric scanning of the chest was performed using a pulmonary embolism protocol MIP images were reconstructed. Using automated exposure control and adjustment of the mA and/or kV acco rding to patient size, radiation dose was kept as low as reasonably achievable to obtain optimal diag nostic quality images. FINDINGS: There is no evidence for pneumothorax. There is no evidence for central pulmonary emboli. There is no pericardial effusion. There is a well-circumscribed low density focal defect dome of the liver measuring 2.5 cm, probably s imple cyst. This was present on study of 11/21/16 and unchanged. CONCLUSION: Negative for central pulmonary emboli. 2. There is no etiology for the patient's left-sided chest pain. Andres Morse MD FACR on November 23, 2016 at 12:51 Board Certified Radiologist. This report was verified electronically.
[2016-11-23] MEDS: LEVOFLOXACIN 750 MG PREMIX INJ 150 ML IV SCH (13:50)
[2016-11-23] MEDS: MORPHINE SULFATE 4 MG/ML INJ IV PRN ×2 (15:33→21:58)
--- NOTE | 2016-11-23 19:22 | HHI.PR ---
Subjective Remarks Awake and has no respiratory distress. On O2 . Able to swallow. C/O some pains in abdomen Objective Vital Signs Date Time Temp Pulse Resp B/P Pulse Ox O2 Delivery O2 Flow Rate FiO2 11/23/16 15:56 98.1 84 18 156/70 95 11/23/16 15:38 20 11/23/16 12:48 20 11/23/16 11:55 98.1 78 20 154/74 96 11/23/16 07:24 98.2 62 18 166/77 92 11/23/16 03:56 97.6 60 20 145/66 97 11/23/16 00:16 98.6 56 20 128/58 95 11/22/16 20:09 95 Nasal Cannula 2.00 11/22/16 19:26 97.6 59 20 100/58 97 I/O 11/22/16 11/22/16 11/22/16 11/23/16 11/23/16 11/23/16 07:00 15:00 23:00 07:00 15:00 23:00 Intake Total 600 ml 730 ml Output Total 0 ml Balance 600 ml 730 ml Intake Oral 0 ml IV Total 730 ml Other 600 ml Output Estimated Blood Loss 0 ml # Voids 1 2 Result Diagram: 11/23/169 11/23/16 0359 Objective Remarks GENERAL: This is an averagely built middle-aged white female who is anxious, pale and in no acute distress. HEENT: Head normocephalic. Pupils are reactive. Throat is injected. Ears no inflammation. NECK: Supple. No bruits or thyroid enlargement. CHEST: Decreased breath sounds at the bases. clear . HEART: The heart sounds are regular S1-S2. No murmur. ABDOMEN: Soft with mild epigastric tenderness. Bowel sounds are active. EXTREMITIES: No lesions or edema, no calf tenderness. NEUROLOGIC: Reflexes are 1+. No gross motor deficit. SKIN: No lesions observed. Assessment and Plan Assessment and Plan IMPRESSION 1. Esophageal foreign body, resolved 2. Hypertension 3. Anxiety disorder 4. Rule out aspiration. Plan : 1. Cont antibiotic for 5 days. 2. CBC,Chest X ray 3. Nebs qid , prn with duoneb. 4. Soft diet ,aspiration Precaution 5. D/C O2. Guero Montiel MD Nov 23, 2016 19:22
[2016-11-23] MEDS ORDERED: traZODone HCL 50 MG TAB PO SCH (21:00)
[2016-11-23] MEDS: methylPREDNISolone SOD SUCC 40 MG/1 ML VIAL IV SCH (21:57)
[2016-11-24 04:10] VITALS: BP 133/64; PULSE 85; RESP 20; TEMP 97.5; O2SAT 95
[2016-11-24] MEDS: RESP: ALBUTEROL 2.5 MG/IPRATROPIUM 0.5 MG NEB (SCH) NEB ×2 (07:25→13:04)
[2016-11-24] MEDS ORDERED: PRED20 PO (08:01)
[2016-11-24] MEDS ORDERED: LEVO750T33 PO (08:01)
[2016-11-24] MEDS ORDERED: PROT40TA PO (08:01)
[2016-11-24 08:28] VITALS: BP 148/72; PULSE 63; RESP 20; TEMP 98.1; O2SAT 95
[2016-11-24 08:33] VITALS: BP 182/77; PULSE 83; RESP 20; TEMP 97.6; O2SAT 95
[2016-11-24] MEDS: SODIUM CHLORIDE 0.9% FLUSH 10 ML FLUSH IV FLUSH SCH (09:00)
[2016-11-24] MEDS ORDERED: MULTIVITAMIN TAB PO SCH (09:00)
[2016-11-24] MEDS ORDERED: ENALAPRILAT 2.5 MG/2 ML VIAL IV PUSH PRN (09:15)
--- NOTE | 2016-11-24 09:16 | HHI.DS ---
Discharge Summary Admission Date Nov 22, 2016 at 00:06 Discharge Date: Nov 24, 2016 Admitting Diagnosis Esophageal foreign body (1) Esophageal foreign body ICD Code: T18.108A Diagnosis: Principal (2) Renal insufficiency ICD Code: N28.9 Diagnosis: Secondary (3) Anxiety ICD Code: F41.9 Diagnosis: Principal (4) HTN (hypertension) ICD Code: I10 Diagnosis: Secondary (5) SOB (shortness of breath) ICD Code: R06.02 Diagnosis: Principal (6) Hypoxia ICD Code: R09.02 Diagnosis: Principal (7) Chest pain ICD Code: R07.9 Diagnosis: Secondary Procedures EGD with dilation 11/22 Brief History - From Admission This is a 56-year-old female with a PMH of Anxiety was brought to the ER by EMS after choking on a piece of chicken. Per pt and family, pt choked on a piece of boneless chicken, family tried to help by pounding on her back, which was ultimately successful however feels food bolus now lodged in esophagus. Significant epigastric discomfort at this time. No airway compromise, able to speak clearly. On arrival, BP 177/70, HR 95, O2 sat 96% on RA, Afebrile. CBC unremarkable. Creatinine 1.15, no previous labs for comparison. INR 1.0. CXR with no acute findings, chronic compression deformity at T10. CT Chest with no definite foreign body identified. Dr. Vaughan consulted by ER physician, plan is for EGD in am. CBC/BMP: 11/23/16 0359 11/23/16 0359 Significant Findings Laboratory Tests Test 11/21/16 11/22/16 11/22/16 11/23/16 22:00 11:17 13:20 03:59 Red Blood Count 3.99 MIL/MM3 3.82 MIL/MM3 3.64 MIL/MM3 (4.00-5.30) (4.00-5.30) (4.00-5.30) Monocytes (%) (Auto) 10.2 % (0.0-8.0) Activated Partial 32.6 SEC Thromboplast Time (24.3-30.1) Creatinine 1.15 MG/DL (0.50-1.00) Estimat Glomerular Filtration 49 ML/MIN (>89) 68 ML/MIN (>89) 71 ML/MIN (>89) Rate Random Glucose 112 MG/DL (74-106) Troponin I LESS THAN 0.02 LESS THAN 0.02 NG/ML NG/ML (0.02-0.05) (0.02-0.05) Arterial Blood pH 7.33 (7.380-7.420) Arterial Blood Partial 48 mmHg (38-42) Pressure CO2 Blood Gas Hemoglobin 11.5 G/DL (12.0-16.0) Hemoglobin 11.5 GM/DL 11.3 GM/DL (11.6-15.3) (11.6-15.3) Neutrophils (%) (Auto) 73.8 % (16.0-70.0) Chloride Level 110 MEQ/L 109 MEQ/L (98-107) (98-107) Anion Gap 4 MEQ/L (5-15) Calcium Level 8.2 MG/DL (8.5-10.1) Hematocrit 33.3 % (35.0-46.0) Imaging Last Impressions Lower Extremity Ultrasound 11/23/16 0000 Signed Impressions: Service Date/Time: Wednesday, November 23, 2016 09:06 - CONCLUSION: Negative for deep venous thrombosis. Andres Morse MD FACR CT Angiography 11/23/16 0000 Signed Impressions: Service Date/Time: Wednesday, November 23, 2016 12:03 - CONCLUSION: Negative for central pulmonary emboli. 2. There is no etiology for the patient's left- sided chest pain. Andres Morse MD FACR Chest X-Ray 11/22/16 0000 Signed Impressions: Service Date/Time: Tuesday, November 22, 2016 10:18 - CONCLUSION: No acute cardiopulmonary disease identified. Garrett Kelly MD Chest CT 11/21/16 0000 Signed Impressions: Service Date/Time: Monday, November 21, 2016 22:18 - CONCLUSION: No definite foreign body identified. Moderate to severe chronic compression deformity involving T10 with kyphosis. Lungs are clear. Bairon Costello MD PE at Discharge GENERAL: Well-developed well-nourished. Appears much more comfortable and less anxious today. SKIN: Warm and dry. No lesions noted. HEENT: Normocephalic. Pupils equal and round. Mucous membranes pink and moist. CARDIOVASCULAR: Regular rate and rhythm. No murmur appreciated. RESPIRATORY: Clear to auscultation. Breath sounds equal bilaterally. GASTROINTESTINAL: Abdomen soft, non-tender, nondistended. Bowel sounds x4. MUSCULOSKELETAL: No clubbing or cyanosis. No edema. Left chest wall TTP. No obvious deformities. NEUROLOGICAL: Awake and alert. No focal neurological deficits. Moves upper and lower extremities spontaneously. Normal speech. PSYCHIATRIC: Slightly anxious mood and affect; insight and judgment normal. Pt update on day of discharge Sister at bedside. Patient's breathing has improved. No longer requiring oxygen. Continues to complain of left flank/left upper quadrant pain with breathing. She intends report poor appetite, but is tolerating pured diet, no vomiting. Planning on going back to [place] where her PCP is. Hospital Course 56-year-old female with a PMH of Anxiety who presented after choking on a piece of chicken Esophageal Foreign Body: after choking on boneless chicken, CXR w/ no acute findings, CT Chest w/ no obvious foreign body noted. Gastroenterology, Dr. Vaughan consulted, performed EGD which showed Schatzki ring which was dilated. Speech therapy consulted who recommended pured diet. PPI. Atypical chest pain/shortness of breath/hypoxia: Concern for aspiration with dysphagia as above. Troponin negative 2. Chest x-rays and CT show no infiltrate. Pulmonary angiogram showed no PE, no infiltrate, no radiology for chest pain. Dopplers negative for DVT. Pulmonology consulted. Continue supplemental oxygen, nebulizers, course of Levaquin. Hypoxia and shortness of breath improved with treatment of anxiety. [place] as needed for pain. Dehydration with mild CARA: Creatinine 1.15, no previous labs for comparison. Creatinine improved to 0.83 with IVF. Anxiety: Acute exacerbation with meds held 2 days while patient was nothing by mouth. Anxiety improved when home medications were restarted. Continue home medications. Labile BP: Reasonably controlled at this time. No antihypertensives indicated currently, continue follow-up with PCP for monitoring. Pt Condition on Discharge: Stable Discharge Disposition: Discharge Home Discharge Time: > 30 minutes Discharge Instructions DIET: Follow Instructions for: As Tolerated, No Restrictions Speech Therapy-Diet Recommends: Pureed Additional Diet Instructions: CHEW FOOD WELL. Activities you can perform: Regular-No Restrictions Follow up Referrals: Gastroenterology - 2 Weeks with Spike Vaughan MD PCP Follow-up - 1 Week New Medications: Hydrocodone-Acetaminophen ([place]) 5-325 mg Tab 1 TAB PO Q6H PRN PAIN #7 Ref 0 TAB Levofloxacin (Levofloxacin) 750 Mg Tab 750 MG PO DAILY Infection #7 Ref 0 TAB Pantoprazole (Protonix) 40 Mg Tab 40 MG PO DAILY Reflux #30 Ref 0 TAB Prednisone (Prednisone) 20 Mg Tab 20 MG PO BID Broncospasm #6 Ref 0 TAB Continued Medications: Bupropion HCl (Bupropion HCl) 100 Mg Tab 300 MG PO DAILY Control Depression Ref 0 TAB Citalopram (Citalopram) 40 Mg Tab 40 MG PO DAILY Control Depression #30 Ref 0 TAB Clonazepam (Clonazepam) 0.5 Mg Tab 0.5 MG PO DAILY #60 Ref 0 TAB Loratadine-Pseudoephedrine 24 HR (Claritin-D 24 HR) 10-240 Mg Tab 1 TAB PO DAILY Allergy Management Ref 0 TAB Multiple Vitamin (Multi Vitamin) 1 Tab Tab 1 TAB PO DAILY TAB Pregabalin (Lyrica) 200 Mg Cap 200 MG PO DAILY #60 Ref 0 CAP Trazodone (Trazodone) 150 Mg Tab 150 MG PO HS Control Depression #30 Ref 0 TAB Additional Information Written by Bigg Odom, acting as scribe for Dr. Nielson on 11/24/16 at 09:16. All or portions of this note were transcribed by skye CORDOVA. I, Dr. Dottie Nielson personally performed the history, physical exam, and medical decision making; and confirmed the accuracy of the information in the transcribed note. Authenticated by Dr. Dottie Nielson on 11/24/16 at 09:16. Bigg Odom Nov 24, 2016 09:16 Dottie Nielson MD Nov 24, 2016 14:21
[2016-11-24] MEDS ORDERED: NORC5TAB PO (09:17)
[2016-11-24] MEDS: methylPREDNISolone SOD SUCC 40 MG/1 ML VIAL IV SCH (09:26)
[2016-11-24] MEDS: PANTOPRAZOLE SODIUM 40 MG VIAL IV PUSH SCH (09:27)
[2016-11-24] MEDS: buPROPion HCL 100 MG TAB PO SCH (09:27)
[2016-11-24] MEDS: PREGABALIN 100 MG CAP PO SCH (09:29)
[2016-11-24] MEDS ORDERED: ACETAMINOPHEN/HYDROcodone 325 MG/5 MG TAB PO ONE (09:30)
[2016-11-24] MEDS: CITALOPRAM HYDROBROMIDE 40 MG TAB PO SCH (09:31)
[2016-11-24] MEDS: clonazePAM 0.5 MG TAB PO SCH (09:32)
[2016-11-24 10:53] VITALS: BP 148/79; PULSE 57
[2016-11-24 11:44] VITALS: BP 155/74; PULSE 58; RESP 18; TEMP 98.5; O2SAT 94
--- NOTE | 2016-11-24 12:03 | HHI.PR ---
Subjective Remarks Awake and has no respiratory distress. Off O2 sats are 97.. Able to swallow. C/O some pains in abdomen and left side Objective Vital Signs Date Time Temp Pulse Resp B/P Pulse Ox O2 Delivery O2 Flow Rate FiO2 11/24/16 11:44 98.5 58 18 155/74 94 11/24/16 10:53 57 148/79 11/24/16 10:29 18 11/24/16 10:29 18 11/24/16 08:33 97.6 83 20 182/77 95 11/24/16 08:28 98.1 63 20 148/72 95 11/24/16 04:10 97.5 85 20 133/64 95 11/23/16 23:33 98.5 76 20 122/59 95 11/23/16 22:13 18 11/23/16 21:11 95 11/23/16 19:25 98.0 89 20 134/70 95 11/23/16 15:56 98.1 84 18 156/70 95 Result Diagram: 11/23/16 0359 11/23/16 0359 Objective Remarks GENERAL: This is an averagely built middle-aged white female who is anxious, pale and in no acute distress. HEENT: Head normocephalic. Pupils are reactive. Throat is clear. Ears no inflammation. NECK: Supple. No bruits or thyroid enlargement. CHEST: Decreased breath sounds at the bases. clear . HEART: The heart sounds are regular S1-S2. No murmur. ABDOMEN: Soft with mild epigastric tenderness. Bowel sounds are active. EXTREMITIES: No lesions or edema, no calf tenderness. NEUROLOGIC: Reflexes are 1+. No gross motor deficit. SKIN: No lesions observed. Assessment and Plan Assessment and Plan IMPRESSION 1. Esophageal foreign body, resolved 2. Hypertension 3. Anxiety disorder 4. Rule out aspiration. Plan : 1. Cont antibiotic for 3 days. 2. IS at bedside qid 3. Nebs qid , prn with duoneb. 4. Soft diet ,aspiration Precaution 5. Home per Guero Phelan MD Nov 24, 2016 12:03
== END 2016-11-24 13:29 | disposition home or self-care (01) ==
LOC: NEPE 21:18 → NEDA 11-22 00:06 → NEDH 11-22 04:06 → NEPFCDU 11-22 15:52
PROVIDERS: ADMIT Hospitalist; ATTEND Hospitalist
DX: T18.128A Food in esophagus causing other injury, initial encounter (principal); Z79.899 Other long term (current) drug therapy; R06.02 Shortness of breath; R06.2 Wheezing; N17.9 Acute kidney failure, unspecified; F41.9 Anxiety disorder, unspecified; I10 Essential (primary) hypertension; K22.2 Esophageal obstruction; R09.02 Hypoxemia; R09.89 Other specified symptoms and signs involving the circulatory and respiratory systems; R00.1 Bradycardia, unspecified; K44.9 Diaphragmatic hernia without obstruction or gangrene; M79.605 Pain in left leg; M79.604 Pain in right leg
CPT/HCPCS: 00740; 36600; 43248; 71010; 71020; 71250; 71275; 76937; 80048; 80053; 82805; 84484; 85025; 85610; 85730; 87040; 88305; 92610; 93005; 93970; 94150; 94640; 94664; 96374; 96375; 96376; 99285; C1769; C9113; G0378; G8996; G8997; G8998; J0131; J1170; J1610; J1956; J2060; J2270; J2920; J7030; J7613; Q9967